=== PATIENT | male | born 1985 | race Caucasian/White ===

== ENCOUNTER 2022-09-23 12:38 | Emergency (ER) | payer OTHER, BC ==
[2022-09-23] MEDS ORDERED: Ketorolac 60 MG/2 ML SDV IM ONE (13:42)
== END 2022-09-23 14:33 | disposition home or self-care (01) ==
LOC: JD.ED 12:38
DX: S22.42XA Multiple fractures of ribs, left side, initial encounter for closed fracture (principal); K21.9 Gastro-esophageal reflux disease without esophagitis; F17.210 Nicotine dependence, cigarettes, uncomplicated; Z88.8 Allergy status to other drugs, medicaments and biological substances
CPT/HCPCS: 71101; 96372; 99283; J1885